=== PATIENT | female | born 1990 | race Caucasian/White ===

== ENCOUNTER 2024-01-11 18:52 | Emergency (ER) | payer OTHER, SELFPAY ==
[2024-01-11 18:54] VITALS: BP 113/77; BMI 21.1
[2024-01-11 19:32] LABS: % Basophils 0.3 % (0-2); % Eosinophils 0.6 % (0-6); % Immature Granulocytes 0.4 % (0-0.5); % Lymphocytes 13.3 % (20.5-51.1); % Monocytes 4.7 % (1.7-9.3); % Neutrophils 80.7 % (42.2-75.2); Absolute Eosinophils 0.1 10^3/uL (0-0.7); Absolute Lymphocytes 1.3 10^3/uL (1.2-3.4); Absolute Monocytes 0.5 10^3/uL (0.1-0.6); Hematocrit 37.3 % (37.0-47.0); Hemoglobin 13.2 g/dL (12.0-16.0); Mean Corp Hgb Conc. 35.4 g/dL (33.0-37.0); Mean Corpuscular Hgb 32.2 pg (27.0-31.0); Nucleated Red Blood Cells % 0 %; Platelet Count 253 10^3/uL (130-400); Red Cell Dist. Width 12.7 % (11.5-14.5)
[2024-01-11 20:04] LABS: ALT (SGPT) < 10 U/L (0-35); AST (SGOT) 18 U/L (14-36); Albumin 3.8 g/dl (3.5-5.0); Alkaline Phosphatase 84 U/L (38-126); Blood Urea Nitrogen 8 mg/dl (7-17); Calcium 8.9 mg/dl (8.4-10.2); Carbon Dioxide 22 mmol/L (22-30); Chloride 103 mmol/L (98-107); Estimated Creatinine Clearance > 125 ml/min; Glucose 101 mg/dl (70-99); Potassium 3.5 mmol/L (3.5-5.1); Sodium 133 mmol/L (135-145); Total Bilirubin 1.1 mg/dl (0.2-1.3); Total Protein 7.2 g/dl (6.3-8.2); eGFR > 60.00
--- NOTE | 2024-01-11 21:09 | ED.GENMED ---
History of Present Illness
General
Chief Complaint: Abdominal Symptoms
Time Seen by Provider: 01/11/24 21:08
Travel History
Have you had any contact with someone who has COVID-19?: No
Do you have any symptoms of coronavirus? Fever > 100 degrees, chills, cough, shortness of breath, sore throat, loss of taste or smell, muscle aches, or headache?: No
History of Present Illness
History of Present Illness:
HPI: Patient states she is 15 weeks and presents with right-sided abdominal pain. She has had some decreased appetite and only had a salad today. The pain worsens with movement and twisting her torso. She states she has had a large
subchorionic hemorrhage seen at [place].
EXAM:
GENERAL: Well appearing in no distress
HEENT: Moist oral mucosa
CARDIOVASCULAR: No murmurs, normal heart rate, regular rhythm, No chest wall tenderness
PULMONARY: No respiratory distress, breath sounds are clear and equal
ABDOMEN: Soft with no peritoneal signs, mild right upper and right lower quadrant tenderness
NEUROLOGIC: Excellent strength all extremities, no coordination deficits
PSYCHIATRIC: Appropriate mental status, normal insight and judgement
EXTREMITIES: Nontender, no edema, moves all extremities equally
SKIN: No rash, no lesions
TIME OF INITIAL ENCOUNTER: 9:20 PM
NUMBER AND COMPLEXITY OF PROBLEMS ADDRESSED AT THE ENCOUNTER
� Chronic conditions affecting care: Had 2021 otherwise denies any significant medical history
� Acute Exacerbation and/or Progression of Chronic Illness: This is an acute problem
� Differential Diagnosis includes: Progression of subchorionic hemorrhage, appendicitis, cholecystitis, biliary colic, abdominal wall strain
AMOUNT AND/OR COMPLEXITY OF DATA TO BE REVIEWED AND ANALYZED
� I performed an independent evaluation of and my interpretation is:
EKG:
CT:
X-rays:
Laboratory Studies: White count 10.0, hemoglobin 13.2, chemistries including LFTs normal, quant ordered from triage was 89,000
Other: Ultrasound imaging shows single live IUP measuring 15 weeks / 5 days with heart rate of 153, ultrasound could not visualize appendix, ultrasound of the gallbladder was unremarkable
� Review of other/old records: no old records available for review
� Clinical information was obtained by an independent historian:
� Prescriptions/Medications Considered but not given:
� Further testing considered but not performed: Considered MRI for further evaluation of the appendix however she appears very comfortable with normal white blood cell count with only minimal tenderness in the right lower
quadrant and equal tenderness in the right upper quadrant.
RISK OF COMPLICATIONS AND/OR MORBIDITY OR MORTALITY OF PATIENT MANAGEMENT
� Social determinants of health affecting care:
� Discussion with other providers:
� Escalation of care including admission/observation vs risk of discharge considered: I reassessed patient at 12:15 AM, she appears comfortable. Relatively unremarkable workup. We talked about the possibly of appendicitis
however white count is normal and her tenderness seems to be more lateral than typical for appendix. Possible oblique muscle strain. Encouraged to return here if worse.
Phy Exam
Physical Exam
Physical Exam:
See HPI
Course
Orders/Labs/Results
Orders:
Orders
01/11/24 19:18
CMP [Comprehensive Metabolic Panel] Urgent
Complete Blood Count/With Diff Urgent
HCG,SERUM [Beta HCG Quantitative] Urgent
Is this a screen?: No
01/11/24 21:09
US Abdomen Complete/Upper Urgent
Comment:
Reason For Exam: R pain
US Limited Urgent
Reason For Exam: 15wks preg pain
01/11/24 21:25
US Abdomen - Appendix Only Urgent
Comment:
Reason For Exam: RLQ pain tender
Abnormal Lab Results
01/11/24
19:18
RBC 4.10 L 10^6/uL
(4.20-5.40)
MCH 32.2 H pg
(27.0-31.0)
Absolute Neuts (auto) 8.0 H 10^3/uL
(1.4-6.5)
Neutrophils % 80.7 H %
(42.2-75.2)
Lymphocytes % 13.3 L %
(20.5-51.1)
Sodium 133 L mmol/L
(135-145)
Creatinine 0.5 L mg/dL
(0.6-1.0)
Glucose 101 H mg/dl
(70-99)
01/11/24 19:18
01/11/24 19:18
Vital Signs
Initial and Last Documented VS:
Initial Vital Signs
Temp Pulse Resp BP Pulse Ox
98.6 F 91 16 113/77 100
01/11/24 18:54 01/11/24 18:54 01/11/24 18:54 01/11/24 18:54 01/11/24 18:54
Last Documented Vital Signs
Temp Pulse Resp BP Pulse Ox
98.6 F 92 16 107/75 98
01/11/24 18:54 01/12/24 00:05 01/12/24 00:05 01/12/24 00:05 01/12/24 00:05
*Critical Care Note
Total Time (30-74mins, 75-104mins- exclusive of procedures): Not Applicable
ED Attending Note
-
Portions of this chart may have been created with voice recognition software.� Occasional wrong word or��sound alike� substitutions may have occurred due to the inherent limitations of voice recognition software.
Discharge Plan
Departure
Patient Disposition: Home (Routine Discharge)
Date of Disposition: 01/12/24
Time of Disposition: 00:19
Patient with high blood pressure during this ER visit?: No
Discharge Problem:
Abdominal pain
Instructions: Abdominal Pain
Referrals:
UNKNOWN - PT DOES,NOT KNOW [Family Provider] -
Activity Restrictions/Additional Instructions:
The cause of your symptoms is unclear. Your white blood cell count was normal at 10.0. Pelvic ultrasound shows live intrauterine measuring 15 weeks and 5 days with heart rate of 153 bpm. The center was anterior, there is suggestion of
succenturiate lobe posteriorly containing 3.1cm placental santamaria, cervix is closed, ovaries unremarkable, the appendix was not visualized however there is no evidence for free fluid in the right lower quadrant at this time I have relatively low
suspicion for appendicitis however your symptoms worsen you are welcome to return here we may consider MRI if felt appropriate; gallbladder ultrasound is unremarkable. 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
Interventions
Interventions:
*Risk Screen - Suicide Last Done: 01/11/24 18:54
*General Assessment Last Done: 01/11/24 18:54
*Neglect/Abuse Screening Last Done: 01/11/24 18:54
ED- Fall Risk Assessment Last Done: 01/12/24 00:05
*ED COVID-19 Vaccine History Last Done: 01/11/24 18:54
*Nursing Disposition Last Done: 01/12/24 00:32
NN-[id number]-[id number] Assessment Last Done: 01/12/24 00:05
Discharge Date and Time
Discharge Date/Time: 01/12/24 00:33
Print Language: [id number]
[2024-01-12 00:05] VITALS: BP 107/75
== END 2024-01-12 00:33 | disposition home or self-care (01) ==
LOC: EMR 18:52
PROVIDERS: Emergency Medicine; EMERGENCY PHYSICIAN Emergency Medicine
DX: O26.892 Other specified pregnancy related conditions, second trimester (principal); Z3A.15 15 weeks gestation of pregnancy; R10.31 Right lower quadrant pain; R10.11 Right upper quadrant pain
CPT/HCPCS: 99284; 76700; 76705; 76815; 80053; 84702; 85025